=== PATIENT | female | born 1965 | race American Indian/Alaskan Native ===

== ENCOUNTER 2019-08-27 01:06 | Observation (INO) | payer OTHER ==
--- NOTE | 2019-08-27 02:12 | Emergency Department Report ---
ED General Adult HPI - General Chief complaint: Anxiety Stated complaint: FEELING FAINT ARMS AND NECK SORE HALLIE Time Seen by Provider: 08/27/19 01:56 Source: patient Mode of arrival: Ambulatory Limitations: No Limitations - History of Present Illness Initial comments: Patient is a 54 years old female with no significant past medical history except for anemia secondary to heavy menstrual period and h/o panic attack. Patient presented to the ER complaining of shortness of breath and generalized weakness. Patient is also complaining of bilateral arm pain, neck pain since yesterday. Patient thinking that she is having a panic attack. Patient found to have a blood pressure of 176/83. Patient denies any focal weakness, numbness or tingling sensation. No headache. Patient denied any chest pain. - Related Data Allergies Allergy/AdvReac Type Severity Reaction Status Date / Time No Known Allergies Allergy Unverified 08/27/19 03:27 ED Review of Systems ROS: Stated complaint: FEELING FAINT ARMS AND NECK SORE HALLIE Other details as noted in HPI Comment: All other systems reviewed and negative Constitutional: denies: chills, fever Respiratory: shortness of breath, SOB with exertion, SOB at rest. denies: cough, wheezing Cardiovascular: denies: chest pain Gastrointestinal: denies: abdominal pain, nausea, vomiting Neurological: denies: headache, weakness, numbness, paresthesias, confusion, abnormal gait ED Past Medical Hx - Past Medical History Previous Medical History?: Yes Hx Psychiatric Treatment: Yes (anxiety) - Surgical History Past Surgical History?: No - Social History Smoking Status: Never Smoker Substance Use Type: None ED Physical Exam - General Limitations: No Limitations General appearance: alert, in no apparent distress - Head Head exam: Present: atraumatic, normocephalic, normal inspection - Eye Eye exam: Present: normal appearance, other (pale conjunctiva) - ENT ENT exam: Present: normal exam, normal orophraynx, mucous membranes moist - Neck Neck exam: Present: normal inspection, full ROM. Absent: tenderness, meningismus, lymphadenopathy, thyromegaly - Respiratory Respiratory exam: Present: normal lung sounds bilaterally - Cardiovascular Cardiovascular Exam: Present: regular rate, normal rhythm, normal heart sounds - GI/Abdominal GI/Abdominal exam: Present: soft, normal bowel sounds. Absent: distended, tende rness, guarding, rebound, rigid, organomegaly, mass, bruit, pulsatile mass, hernia - Extremities Exam Extremities exam: Present: normal inspection, full ROM, normal capillary refill - Back Exam Back exam: Present: normal inspection, full ROM. Absent: CVA tenderness (R), CVA tenderness (L) - Neurological Exam Neurological exam: Present: alert, oriented X3, CN II-XII intact, reflexes normal - Psychiatric Psychiatric exam: Present: normal mood - Skin Skin exam: Present: warm, intact, normal color ED Course Vital Signs 08/27/19 08/27/19 08/27/19 01:14 03:31 03:45 Temperature 98.3 F Pulse Rate 88 77 Respiratory 20 20 Rate Blood Pressure 176/83 139/76 O2 Sat by Pulse 100 80 L 84 Oximetry 08/27/19 08/27/19 04:00 04:15 Temperature Pulse Rate 88 80 Respiratory 21 24 Rate Blood Pressure 133/84 128/73 O2 Sat by Pulse 100 100 Oximetry ED Medical Decision Making - Lab Data Result diagrams: 08/27/19 03:43 08/27/19 02:33 - EKG Data -: EKG Interpreted by Nv EKG shows normal: sinus rhythm Rate: normal - EKG Data Interpretation: no acute changes - Radiology Data Radiology results: report reviewed - Medical Decision Making Patient is a 54 years old female with no significant past medical history except for anemia secondary to heavy menstrual period and h/o panic attack. Patient presented to the ER complaining of shortness of breath and generalized weakness. Patient is also complaining of bilateral arm pain, neck pain since yesterday. Patient thinking that she is having a panic attack. Patient found to have a blood pressure of 176/83. Patient denies any focal weakness, numbness or tingling sensation. No headache. Patient denied any chest pain. EKG is unremarkable. Chest x-ray is unremarkable too. Patient found to have a hemoglobin of 5. One units of PRBC ordered. Patient stated that she had history of blood transfusion for the same problem before. Patient currently denying any vaginal bleeding but she stated that her last menstrual period last month's was heavy with clots. I discussed the patient with , he agreed to admit the patient to the medical service for further management. Critical Care Time: Yes Critical care time in (mins) excluding proc time.: 30 Critical care attestation.: If time is entered above; I have spent that time in minutes in the direct care of this critically ill patient, excluding procedure time. ED Disposition Clinical Impression: Shortness of breath, Acute anemia Disposition: DC-[id number] OP ADMIT IP TO THIS HOSP Is pt being admited?: Yes Condition: Stable
[2019-08-27 03:21] LABS: BUN/Creatinine Ratio 13; Blood Urea Nitrogen 8 mg/dL (7-17); Calcium 9.4 mg/dL (8.4-10.2); Hemolysis Index 7
--- NOTE | 2019-08-27 03:25 | XRay Report ---
CHEST 1 VIEW, 08/27/2019 2:12 AM CLINICAL INFORMATION/INDICATION: Chest pain COMPARISON: None FINDINGS: SUPPORT DEVICES: None. HEART: Cardiac silhouette is normal in size. LUNGS/PLEURA: The lungs are clear of focal airspace disease or significant pleural effusion. ADDITIONAL FINDINGS: No additional acute findings. IMPRESSION: 1. No evidence of acute cardiopulmonary process. Signer Name: Shirin Sanchez MD Signed: 08/27/2019 3:21 AM Workstation Name: [email or web address]
[2019-08-27 04:17] LABS: Mean Corpuscular HGB Conc 25 % (30-34); Red Blood Count 3.86 M/mm3 (3.65-5.03)
[2019-08-27 04:22] LABS: Hematocrit 20.4 % (30.3-42.9); Mean Corpuscular Volume 53 fl (79-97); Red Cell Distribution Width 23.7 % (13.2-15.2)
[2019-08-27] MEDS ORDERED: SODIUM CHLORIDE 0.9% 500 ML 500 ML IV ONE ×2 (04:34→05:28)
[2019-08-27 05:01] LABS: Total Cells Counted 100
[2019-08-27 05:02] LABS: Anisocytosis 2+; Hypochromasia 3+; Macrocytosis 3+
[2019-08-27 05:03] LABS: Schistocytes 1+
[2019-08-27 05:04] LABS: Ovalocytes 2+
[2019-08-27 05:05] LABS: Platelet Estimate Consistent w Auto
--- NOTE | 2019-08-27 05:19 | History and Physical Report ---
History of Present Illness Date of examination: 08/27/19 Date of admission: 08/27/19 Chief complaint: Generalized weakness, shortness of breath, panic attack History of present illness: Patient is a 55-year-old female with past medical history of heavy menses, anxiety disorder, panic attack, anemia as a result of heavy menses who presents to the ER with complaints of generalized weakness and shortness of breath for the past few days. Although not reported to me by the patient but on ER documentation the patient also can planes of bilateral arm pain neck pain that started since yesterday. She felt she was having a panic attack and presented to the ED where she was noted to have an initial blood pressure of 176/83. Patient denies any history of chest pain nausea vomiting or diarrhea. Patient reports to me that she has unfortunately not followed with GRAIN ORIGINATION SPECIALIST for many years. She was told in the past that she does have hemorrhoids and also reviewed "Uterine cyst" but has not had those evaluated. In the ED she was noted to have the next 5 as scheduled transfusion was recommended to admit for further management. She states that her menstrual cycle has become irregular she did have one last month but none this month so far. Past Medical History Previous Medical History?: Yes Hx Psychiatric Treatment: Yes (anxiety) - Surgical History Past Surgical History?: No - Social History Smoking Status: Never Smoker Substance Use Type: None Medications and Allergies Allergies Allergy/AdvReac Type Severity Reaction Status Date / Time No Known Allergies Allergy Unverified 08/27/19 03:27 Review of Systems All systems: negative Constitutional: fatigue, weakness, malaise, lethargy, no weight loss, no weight gain, no fever, no chills, no sweats, no night sweats, no chronic headaches, no poor appetite, no daytime sleepiness, no chronic pain, no other Ears, nose, mouth and throat: other (Neck pain) Cardiovascular: shortness of breath, no chest pain, no orthopnea, no palpitations, no rapid/irregular heart beat, no edema, no syncope, no lightheadedness Respiratory: shortness of breath Genitourinary Female: dysmenorrhea, menorrhagia, abnormal vaginal bleeding Menstruation: menses 8 or > days, menses variable Integumentary: no rash, no pruritis, no darkening of skin, no depigmentation Neurological: weakness, no paralysis, no parathesias, no numbness, no tingling, no seizures, no syncope, no tremors, no ataxia, no lack of coordination, no convulsions, no aphasia, no change in mentation Psychiatric: no anxiety, no sleep disturbances, no insomnia, no change in appetite Endocrine: no excessive thirst, no polyuria Hematologic/Lymphatic: no easy bruising Allergic/Immunologic: no urticaria, no allergic rhinitis Exam - Physical Exam Narrative exam: VITAL SIGNS: Reviewed. GENERAL: The patient appears normally developed, Vital signs as documented. HEAD: No signs of head trauma. EYES: Pupils are equal. Extraocular motions intact. Sclerae show some pallor. EARS: Hearing grossly intact. MOUTH: Oropharynx is normal. NECK: No adenopathy, no JVD. CHEST: Chest with clear breath sounds bilaterally. No wheezes, rales, or rhonchi. CARDIAC: Regular rate and rhythm. S1 and S2, without murmurs, gallops, or rubs. VASCULAR: No Edema. Peripheral pulses normal and equal in all extremities. ABDOMEN: Soft, non tender and non distended. No rebound or guarding, and no masses palpated. Bowel Sounds normal. MUSCULOSKELETAL: Good range of motion of all major joints. Extremities without clubbing, cyanosis or edema. NEUROLOGIC EXAM: Alert and oriented x 3 No focal sensory or strength deficits. Speech normal. Follows commands. PSYCHIATRIC: Mood normal. SKIN: See detail exam as documented in skin assessment - Constitutional Vitals: Temp Pulse Resp BP Pulse Ox 98.3 F 80 24 128/73 100 08/27/19 01:14 08/27/19 04:15 08/27/19 04:15 08/27/19 04:15 08/27/19 04:15 Results - Labs CBC & Chem 7: 08/27/19 03:43 08/27/19 02:33 Labs: Laboratory Last Values WBC 7.6 K/mm3 (4.5-11.0) 08/27/19 03:43 RBC 3.86 M/mm3 (3.65-5.03) 08/27/19 03:43 Hgb 5.0 gm/dl (10.1-14.3) L* 08/27/19 03:43 Hct 20.4 % (30.3-42.9) L 08/27/19 03:43 MCV 53 fl (79-97) L 08/27/19 03:43 MCH 13 pg (28-32) L 08/27/19 03:43 MCHC 25 % (30-34) L 08/27/19 03:43 RDW 23.7 % (13.2-15.2) H 08/27/19 03:43 Lymph % (Auto) Portfolio Analyst 08/27/19 03:43 Ada % (Auto) Portfolio Analyst 08/27/19 03:43 Eos % (Auto) Portfolio Analyst 08/27/19 03:43 Baso % (Auto) Portfolio Analyst 08/27/19 03:43 Lymph # Portfolio Analyst 08/27/19 03:43 Ada # Portfolio Analyst 08/27/19 03:43 Eos # Portfolio Analyst 08/27/19 03:43 Baso # Portfolio Analyst 08/27/19 03:43 Add Manual Diff Complete 08/27/19 03:43 Total Counted 100 08/27/19 03:43 Seg Neutrophils % Portfolio Analyst 08/27/19 03:43 Seg Neuts % (Manual) 91.0 % (40.0-70.0) H 08/27/19 03:43 Band Neutrophils % 0 % 08/27/19 03:43 Lymphocytes % (Manual) 5.0 % (13.4-35.0) L 08/27/19 03:43 Reactive Lymphs % (Man) 0 % 08/27/19 03:43 Monocytes % (Manual) 2.0 % (0.0-7.3) 08/27/19 03:43 Eosinophils % (Manual) 1.0 % (0.0-4.3) 08/27/19 03:43 Basophils % (Manual) 1.0 % (0.0-1.8) 08/27/19 03:43 Metamyelocytes % 0 % 08/27/19 03:43 Myelocytes % 0 % 08/27/19 03:43 Promyelocytes % 0 % 08/27/19 03:43 Blast Cells % 0 % 08/27/19 03:43 Nucleated RBC % Not Reportable 08/27/19 03:43 Seg Neutrophils # Portfolio Analyst 08/27/19 03:43 Seg Neutrophils # Man 6.9 K/mm3 (1.8-7.7) 08/27/19 03:43 Band Neutrophils # 0.0 K/mm3 08/27/19 03:43 Lymphocytes # (Manual) 0.4 K/mm3 (1.2-5.4) L 08/27/19 03:43 Abs React Lymphs (Man) 0.0 K/mm3 08/27/19 03:43 Monocytes # (Manual) 0.2 K/mm3 (0.0-0.8) 08/27/19 03:43 Eosinophils # (Manual) 0.1 K/mm3 (0.0-0.4) 08/27/19 03:43 Basophils # (Manual) 0.1 K/mm3 (0.0-0.1) 08/27/19 03:43 Metamyelocytes # 0.0 K/mm3 08/27/19 03:43 Myelocytes # 0.0 K/mm3 08/27/19 03:43 Promyelocytes # 0.0 K/mm3 08/27/19 03:43 Blast Cells # 0.0 K/mm3 08/27/19 03:43 WBC Morphology Not Reportable 08/27/19 03:43 Hypersegmented Neuts Not Reportable 08/27/19 03:43 Hyposegmented Neuts Not Reportable 08/27/19 03:43 Hypogranular Neuts Not Reportable 08/27/19 03:43 Smudge Cells Not Reportable 08/27/19 03:43 Toxic Granulation Not Reportable 08/27/19 03:43 Toxic Vacuolation Not Reportable 08/27/19 03:43 Dohle Bodies Not Reportable 08/27/19 03:43 Pelger-Huet Anomaly Not Reportable 08/27/19 03:43 Roxana Rods Not Reportable 08/27/19 03:43 Platelet Estimate Consistent w auto 08/27/19 03:43 Clumped Platelets Not Reportable 08/27/19 03:43 Plt Clumps, EDTA Not Reportable 08/27/19 03:43 Large Platelets Not Reportable 08/27/19 03:43 Giant Platelets Not Reportable 08/27/19 03:43 Platelet Satelliting Not Reportable 08/27/19 03:43 Plt Morphology Comment Not Reportable 08/27/19 03:43 RBC Morphology Not Reportable 08/27/19 03:43 Dimorphic RBCs Not Reportable 08/27/19 03:43 Polychromasia Few 08/27/19 03:43 Hypochromasia 3+ 08/27/19 03:43 Poikilocytosis Not Reportable 08/27/19 03:43 Anisocytosis 2+ 08/27/19 03:43 Microcytosis Not Reportable 08/27/19 03:43 Macrocytosis 3+ 08/27/19 03:43 Spherocytes Not Reportable 08/27/19 03:43 Pappenheimer Bodies Not Reportable 08/27/19 03:43 Sickle Cells Not Reportable 08/27/19 03:43 Target Cells Not Reportable 08/27/19 03:43 Tear Drop Cells Not Reportable 08/27/19 03:43 Ovalocytes 2+ 08/27/19 03:43 Helmet Cells Not Reportable 08/27/19 03:43 [place] Bodies Not Reportable 08/27/19 03:43 [place] Rings Not Reportable 08/27/19 03:43 [place] Cells Not Reportable 08/27/19 03:43 Bite Cells Not Reportable 08/27/19 03:43 Crenated Cell Not Reportable 08/27/19 03:43 Elliptocytes Not Reportable 08/27/19 03:43 Acanthocytes (Spur) Not Reportable 08/27/19 03:43 Rouleaux Not Reportable 08/27/19 03:43 Hemoglobin C Crystals Not Reportable 08/27/19 03:43 Schistocytes 1+ 08/27/19 03:43 Malaria parasites Not Reportable 08/27/19 03:43 Saul Bodies Not Reportable 08/27/19 03:43 Hem Pathologist Commnt No 08/27/19 03:43 Sodium 146 mmol/L (137-145) H 08/27/19 02:33 Potassium 3.9 mmol/L (3.6-5.0) 08/27/19 02:33 Chloride 110.8 mmol/L (98-107) H 08/27/19 02:33 Carbon Dioxide 18 mmol/L (22-30) L 08/27/19 02:33 Anion Gap 21 mmol/L 08/27/19 02:33 BUN 8 mg/dL (7-17) 08/27/19 02:33 Creatinine 0.6 mg/dL (0.7-1.2) L 08/27/19 02:33 Estimated GFR > 60 ml/min 08/27/19 02:33 BUN/Creatinine Ratio 13 % 08/27/19 02:33 Glucose 182 mg/dL (65-100) H 08/27/19 02:33 Calcium 9.4 mg/dL (8.4-10.2) 08/27/19 02:33 Troponin T < 0.010 ng/mL (0.00-0.029) 08/27/19 02:33 Assessment and Plan Assessment and plan: Patient is a 55-year-old female with past medical history of heavy menses, anxiety disorder, panic attack, anemia as a result of heavy menses who presents to the ER with complaints of generalized weakness and shortness of breath for the past few days. Although not reported to me by the patient but on ER documentation the patient also can planes of bilateral arm pain neck pain that started since yesterday. She felt she was having a panic attack and presented to the ED where she was noted to have an initial blood pressure of 176/83. Patient denies any history of chest pain nausea vomiting or diarrhea. Patient reports to me that she has unfortunately not followed with GRAIN ORIGINATION SPECIALIST for many years. She was told in the past that she does have hemorrhoids and also reviewed "Uterine cyst" but has not had those evaluated. In the ED she was noted to have the next 5 as scheduled transfusion was recommended to admit for further management. She states that her menstrual cycle has become irregular she did have one last month but none this month so far. EKG is unremarkable. Chest x-ray is unremarkable too. Patient found to have a hemoglobin of 5. One units of PRBC ordered. Patient stated that she had history of blood transfusion for the same problem before. Patient currently denying any vaginal bleeding but she stated that her last menstrual period l * Chest x-ray obtained is unremarkable at this time. Symptomatic Anemia Secondary to Menorrahgia Shortness of breath but no clear evidence of respiratory failure DUB Presumed Utrine Fibroid Per Patient Panic Attack/Anxiety disorder- Not Suicidal AND NO Depression Metabolic Acidosis Hypertensive urgency Hypernatremia Hyperglycemia without diagnosis of diabetes PLAN We will admit the patient in place for observation We will obtain transvaginal AND pelvic ultrasound Will obtain GRAIN ORIGINATION SPECIALIST consultation Patient has been ordered 1 unit packed red blood cells anticipate that she will need an additional, will proceed to ordering that. We will nevertheless to obtain a history of age after the first transfusion. I recommended to the patient the need to have mental health evaluation outpatient or psychology evaluation for her repeated anxiety attack. She believes that this is secondary to the menorrhagia. In the meantime in the hospital patient will be started on Xanax as needed I do not anticipate that she will be discharged with this medication. We will start patient on duo nebs and also as needed albuterol. We will monitor patient's blood pressure it appears to have improved at this ti me. Will recommend outpatient BP monitoring for the patient. Also discussed with the patient need to have evaluation for possible new onset diabetes considering elevated fasting blood sugar at this time. DVT and GI prophylaxis will avoid any antiplatelets or heparin like products at this time. The high probability of a clinically significant, sudden or life threatening deterioration of the [HEMATOLOGY, GRAIN ORIGINATION SPECIALIST] system(s) required my full and direct attention, intervention and personal management. The aggregate critical care time was [75] minutes. This time is in addition to time spent performing reported procedures but includes the following: [X] Data Review and interpretation [X] Patient assessment and monitoring of vital signs [X] Documentation [X] Medication orders and management Advance Directives: Yes Plan of care discussed with patient/family: Yes
[2019-08-27] MEDS ORDERED: ONDANSETRON 4 MG/2 ML INJ IV PRN (05:24)
[2019-08-27] MEDS ORDERED: ACETAMINOPHEN 325 MG TAB PO PRN (05:24)
[2019-08-27] MEDS ORDERED: ALBUTEROL 2.5 MG/3 ML NEBU IH PRN (05:24)
[2019-08-27] MEDS ORDERED: ALPRAZolam 0.25 MG TAB PO PRN (05:29)
[2019-08-27 05:39] LABS: Platelet Count 227 K/mm3 (140-440)
[2019-08-27 06:05] LABS: Hematocrit 20.5 % (30.3-42.9)
[2019-08-27 06:27] LABS: % Iron Saturation 2.59 %
[2019-08-27] MEDS: IPRATROPIUM/ALBUTEROL SULFATE 3 ML AMPUL.NEB IH SCH ×3 (09:53→19:44)
[2019-08-27] MEDS ORDERED: SODIUM CHLORIDE 0.9% 500 ML 500 ML IV NR (10:00)
--- NOTE | 2019-08-27 12:33 | Ultrasound Report ---
ULTRASOUND PELVIS COMPLETE ULTRASOUND TRANSVAGINAL INDICATION / CLINICAL INFORMATION: Dysfunctional uterine bleeding. TECHNIQUE: Transabdominal and Transvaginal. Duplex Color Doppler used: Yes. COMPARISON: None available FINDINGS: UTERUS: The uterus is retroflexed and measures 8.7 x 4.7 x 6.8 cm. A 1.7 x 1.8 cm submucosal fibroid is identified in the right lateral wall. A 4.0 x 2.8 cm intramural fibroid is identified in the poste rior wall to the right of midline. A smaller 1.1 cm subserosal fibroid is identified in the right lat eral wall. Endometrium: The endometrium is heterogeneous and mildly thickened measuring 21 mm in thickness. No d iscrete mass or fluid. RIGHT ADNEXA: The right ovary measures 3.8 x 2.2 x 2.0 cm and contains a 1.1 cm cyst. Normal color Do ppler blood flow. LEFT ADNEXA: The left ovary measures 2.1 x 0.8 x 2.9 cm. No focal abnormality. Normal color Doppler b lood flow. URINARY BLADDER: No significant abnormality. FREE FLUID: None. ADDITIONAL FINDINGS: None. IMPRESSION: Mild uterine fibroid disease as described. Slightly thickened endometrial stripe without discrete mass. Consider endometrial hyperplasia. Please correlate with the patient's menstrual status. 1.1 cm right ovarian cyst. Signer Name: Brendan Dial Jr, MD Signed: 08/27/2019 12:29 PM Workstation Name: [id number]
[2019-08-27] MEDS ORDERED: MORPHINE 4 MG/1 ML INJ IV SCH (18:30)
--- NOTE | 2019-08-27 18:59 | Consultation ---
History of Present Illness Consult date: 08/27/19 Reason for consult: menorrhagia (h/o menorrhagia and current anemia), other History of present illness: This patient is a 54-year-old who is admitted for symptomatic anemia. Her hemoglobin was 5. Patient is currently receiving 2 units of packed red cells. TAKE AWAY WORKER was consulted due to her history of chronic menorrhagia. No current vaginal bleeding. Patient's last period though was in July and has had no bleeding in August. Patient notes a chronic history of heavy menses. Patient denies any metrorrhagia. Patient has had mostly normally timed menses this whole year except she skipped a menses in June and she has not had one in August. Her July period was equal to her usual menses. No significant pelvic pain issues. Patient notes that she has been seen for this in the past. She notes years ago she cannot tolerate control. Patient also was admitted to [facility] last year for very similar situation and she knows that her hemoglobin at that time was 4.6. She was given blood at that time and was a dvised to follow up as an outpatient and then but she did not follow-up. Patient notes that she has been taking iron since then though. Patient had an ultrasound today which showed a 4 cm intramural myoma, 1.8cm submucosal myoma and a 21 mm EM stripe. Otherwise, normal uterus on U/S. Past History Past Medical History: blood transfusion (severe anemia requiring PRBCs last year. Also anxiety.), other Past Surgical History: no surgical history - Obstetrical History : 3 Para: 3 Medications and Allergies Allergies Allergy/AdvReac Type Severity Reaction Status Date / Time No Known Allergies Allergy Verified 08/27/19 05:38 Active Meds: Active Medications Acetaminophen (Tylenol) 650 mg PO Q4H PRN PRN Reason: Pain MILD(1-3)/Fever >100.5/ARIAS Last Admin: 08/27/19 09:20 Dose: 650 mg Documented by: Albuterol (Proventil) 2.5 mg IH Q3HRT PRN PRN Reason: Shortness Of Breath Albuterol/Ipratropium (Duoneb *Not For Prn Use*) 1 ampul IH Q6HRT [facility] Last Admin: 08/27/19 15:31 Dose: 1 ampul Documented by: Alprazolam (Xanax) 0.25 mg PO Q8H PRN PRN Reason: Anxiety Sodium Chloride (Nacl 0.9% 500 Ml) 500 mls @ 0 mls/hr IV ONCE NR Stop: 08/28/19 09:59 Morphine Sulfate (Morphine) 4 mg IV Q4H [facility] Ondansetron HCl (Zofran) 4 mg IV Q8H PRN PRN Reason: Nausea And Vomiting Sodium Chloride (Sodium Chloride Flush Syringe 10 Ml) 10 ml IV BID [facility] Last Admin: 08/27/19 10:56 Dose: 10 ml Documented by: Sodium Chloride (Sodium Chloride Flush Syringe 10 Ml) 10 ml IV PRN PRN PRN Reason: LINE FLUSH Review of Systems All systems: negative (except for HPI) - Vital Signs Vital signs: Vital Signs Temp Pulse Resp BP Pulse Ox 98.3 F 88 20 176/83 100 08/27/19 01:14 08/27/19 01:14 08/27/19 01:14 08/27/19 01:14 08/27/19 01:14 Temp Pulse Resp BP Pulse Ox 98.3 F 78 18 154/76 98 08/27/19 17:29 08/27/19 17:29 08/27/19 17:29 08/27/19 17:29 08/27/19 17:29 Results Result Diagrams: 08/27/19 05:35 08/27/19 02:33 Abnormal lab results 08/27/19 08/27/19 08/27/19 Range/Units 02:33 03:43 05:00 Hgb 5.0 L* (10.1-14.3) gm/dl Hct 20.4 L (30.3-42.9) % MCV 53 L (79-97) fl MCH 13 L (28-32) pg MCHC 25 L (30-34) % RDW 23.7 H (13.2-15.2) % Seg Neuts % (Manual) 91.0 H (40.0-70.0) % Lymphocytes % (Manual) 5.0 L (13.4-35.0) % Lymphocytes # (Manual) 0.4 L (1.2-5.4) K/mm3 Sodium 146 H (137-145) mmol/L Chloride 110.8 H (98-107) mmol/L Carbon Dioxide 18 L (22-30) mmol/L Creatinine 0.6 L (0.7-1.2) mg/dL Glucose 182 H (65-100) mg/dL Iron (37-170) ug/dL TIBC (250-450) mcg/dL Transferrin (192-382) mg/dl Crossmatch See Detail 08/27/19 08/27/19 Range/Units 05:35 05:35 Hgb 5.0 L* (10.1-14.3) gm/dl Hct 20.5 L (30.3-42.9) % MCV (79-97) fl MCH (28-32) pg MCHC (30-34) % RDW (13.2-15.2) % Seg Neuts % (Manual) (40.0-70.0) % Lymphocytes % (Manual) (13.4-35.0) % Lymphocytes # (Manual) (1.2-5.4) K/mm3 Sodium (137-145) mmol/L Chloride (98-107) mmol/L Carbon Dioxide (22-30) mmol/L Creatinine (0.7-1.2) mg/dL Glucose (65-100) mg/dL Iron 13 L (37-170) ug/dL TIBC 502 H (250-450) mcg/dL Transferrin 407 H (192-382) mg/dl Crossmatch All other labs normal. Assessment and Plan - Patient Problems (1) Acute anemia Current Visit: Yes Status: Acute Plan to address problem: Patient is receiving packed red blood cells. Continue current care. Her anemia is likely chronic and likely from her chronic menorrhagia. It is encouraging though the patient is potentially going to enter menopause soon as she has had only 1 period since May. I recommend that patient follow up with us RECESSING MACHINE OPERATOR at [facility] as an outpatient. She does warrant an endometrial biopsy which we will do in the office. No further inpatient intervention needed from TAKE AWAY WORKER. At time of discharge, would send patient home with a script for Lysteda 650 mg (take 2 tabs TID for first 5 days of menses)- PT already counseled regarding how to take this. (2) Menorrhagia Current Visit: Yes Status: Acute
[2019-08-27] MEDS ORDERED: MORPHINE 4 MG/1 ML INJ IV PRN (19:26)
[2019-08-27 21:44] LABS: Mean Corpuscular HGB Conc 29 % (30-34); Red Blood Count 4.03 M/mm3 (3.65-5.03)
[2019-08-27 21:46] LABS: Hematocrit 25.3 % (30.3-42.9); Hemoglobin 7.4 gm/dl (10.1-14.3); Mean Corpuscular Volume 63 fl (79-97)
[2019-08-27 21:47] LABS: Platelet Count 194 K/mm3 (140-440); Red Cell Distribution Width 35.2 % (13.2-15.2)
[2019-08-27 22:42] LABS: Total Cells Counted 100
[2019-08-27 22:43] LABS: Basophils % (Manual) 0 % (0.0-1.8)
[2019-08-27 22:44] LABS: Anisocytosis 2+; Hypochromasia 2+; Platelet Estimate Consistent w Auto
[2019-08-27 22:45] LABS: Dimorphic RBC Yes
[2019-08-28] MEDS: IPRATROPIUM/ALBUTEROL SULFATE 3 ML AMPUL.NEB IH SCH (02:29)
[2019-08-28 05:02] VITALS: BP 156/89
[2019-08-28 05:27] LABS: BUN/Creatinine Ratio 8; Blood Urea Nitrogen 5 mg/dL (7-17); Calcium 8.8 mg/dL (8.4-10.2); Hemolysis Index 0
[2019-08-28 08:35] LABS: Hematocrit 27.5 % (30.3-42.9); Hemoglobin 8.3 gm/dl (10.1-14.3); Mean Corpuscular HGB Conc 30 % (30-34); Mean Corpuscular Volume 62 fl (79-97); Platelet Count 234 K/mm3 (140-440); Red Blood Count 4.48 M/mm3 (3.65-5.03); Red Cell Distribution Width 35.8 % (13.2-15.2)
--- NOTE | 2019-08-28 10:52 | Discharge Summary ---
Providers - Providers Date of Admission: 08/27/19 06:06 Attending physician: ZAN JOHANSEN MD 08/27/19 05:24 Consult to Physician [CONS] Routine Comment: Consulting Provider: ADELIA VEGA Physician Instructions: Reason For Exam: DUB, SEVERE ANEMIA Primary care physician: [employer] Hospitalization Reason for admission: anemia Condition: Stable Hospital course: Patient is a 55-year-old female with past medical history of heavy menses, anxiety disorder, panic attack, anemia as a result of heavy menses who presents to the ER with complaints of generalized weakness and shortness of breath for the past few days. Although not reported to me by the patient but on ER documentation the patient also can planes of bilateral arm pain neck pain that started since yesterday. She felt she was having a panic attack and presented to the ED where she was noted to have an initial blood pressure of 176/83. Patient denies any history of chest pain nausea vomiting or diarrhea. Patient reports to me that she has unfortunately not followed with LINKING MACHINE OPERATOR for many years. She was told in the past that she does have hemorrhoids and also reviewed "Uterine cyst" but has not had those evaluated. In the ED she was noted to have the next 5 as scheduled transfusion was recommended to admit for further management. She states that her menstrual cycle has become irregular she did have one last month but none this month so far. EKG is unremarkable. Chest x-ray is unremarkable too. Patient found to have a hemoglobin of 5. One units of PRBC ordered. Patient stated that she had history of blood transfusion for the same problem before. Patient currently denying any vaginal bleeding but she stated that her last menstrual period l * Chest x-ray obtained is unremarkable at this time. * Patient was seen by LINKING MACHINE OPERATOR -Patient is receiving packed red blood cells. Continue current care. Her anemia is likely chronic and likely from her ch ronic menorrhagia. It is encouraging though the patient is potentially going to enter menopause soon as she has had only 1 period since May. I recommend that patient follow up with us [facility] at [facility] as an outpatient. She does warrant an endometrial biopsy which we will do in the office. No further inpatient intervention needed from LINKING MACHINE OPERATOR. At time of discharge, would send patient home with a script for Lysteda 650 mg (take 2 tabs TID for first 5 days of menses)- PT already counseled regarding how to take this. * Patient received 2 Units PRBC Symptomatic Anemia Secondary to Menorrahgia Shortness of breath but no clear evidence of respiratory failure DUB Presumed Utrine Fibroid Per Patient Panic Attack/Anxiety disorder- Not Suicidal AND NO Depression Metabolic Acidosis Menorrhagia Hypertensive urgency Hypernatremia Hyperglycemia without diagnosis of diabetes Disposition: DC-01 TO HOME OR SELFCARE Time spent for discharge: 35 MINS Core Measure Documentation - Palliative Care Palliative Care/ Comfort Measures: Not Applicable - Core Measures Any of the following diagnoses?: none Exam - Physical Exam Narrative exam: VITAL SIGNS: Reviewed. GENERAL: The patient appears normally developed, Vital signs as documented. HEAD: No signs of head trauma. EYES: Pupils are equal. Extraocular motions intact. Sclera show some pallor. EARS: Hearing grossly intact. MOUTH: Oropharynx is normal. NECK: No adenopathy, no JVD. CHEST: Chest with clear breath sounds bilaterally. No wheezes, rales, or rhonchi. CARDIAC: Regular rate and rhythm. S1 and S2, without murmurs, gallops, or rubs. VASCULAR: No Edema. Peripheral pulses normal and equal in all extremities. ABDOMEN: Soft, non tender and non distended. No rebound or guarding, and no masses palpated. Bowel Sounds normal. MUSCULOSKELETAL: Good range of motion of all major joints. Extremities without clubbing, cyanosis or edema. NEUROLOGIC EXAM: Alert and oriented x 3 No focal sensory or strength deficits. Speech normal. Follows commands. PSYCHIATRIC: Mood normal. SKIN: See detail exam as documented in skin assessment - Constitutional Vitals: Temp Pulse Resp BP Pulse Ox 98.3 F 69 18 156/89 96 08/28/19 05:00 08/28/19 05:00 08/28/19 05:00 08/28/19 05:00 08/28/19 08:56 Plan Activity: advance as tolerated, fall precautions Diet: low fat Special Instructions: record daily weights, record daily BP diary Follow up with: PRIMARY CAREMD [Primary Care Provider] - 7 Days ADELIA VEGA MD [Staff Physician] - 7 Days Prescriptions: Tranexamic Acid [Lysteda] 1,300 mg PO TID #30 tab
== END 2019-08-28 12:56 | disposition home or self-care (01) ==
LOC: ED 01:06 → 3A 06:06
PROVIDERS: ADMIT Internal Medicine Geriatric Medicine; ATTEND Internal Medicine
DX: D64.9 Anemia, unspecified (principal); N92.0 Excessive and frequent menstruation with regular cycle; R06.02 Shortness of breath; N93.8 Other specified abnormal uterine and vaginal bleeding; F41.0 Panic disorder [episodic paroxysmal anxiety]; E87.2 Acidosis; I16.0 Hypertensive urgency; E87.0 Hyperosmolality and hypernatremia; R73.9 Hyperglycemia, unspecified
CPT/HCPCS: 36415; 71045; 76830; 76856; 80048; 82747; 83550; 84484; 85007; 85014; 85018; 85025; 85027; 86850; 86900; 86901; 86920; 93005; 93010; 94640; 94760; 96374; 99291; G0378; J2270; J7040; P9016